=== PATIENT | male | born 1945 | race Caucasian/White ===

== ENCOUNTER 2017-08-31 07:37 | Day surgery (SDC) | payer MEDICARE, OTHER ==
[~2017-08-31 07:37] MED LIST: Acetaminophen TAB* 325 MG PO PRN; Buffered Lidocaine 0.9% SYRIN* 5 ML/SYR SYRINGE INTRADERM ONE
[2017-08-31] MEDS ORDERED: Midazolam* 1 MG/ML 2 ML VIAL (2 MG) ONE ×2 (07:41→10:42)
[2017-08-31] MEDS ORDERED: fentaNYL* 50 MCG/ML 2 ML VIAL (100 MCG VIAL) ONE (10:38)
[2017-08-31 11:04] VITALS: BP 122/69
[2017-08-31] MEDS ORDERED: acetaZOLAMIDE TAB* 250 MG ONE (15:05)
[2017-08-31] MEDS ORDERED: Cyclopentolate 1% OPTH.SOL* 2 ML BTL ONE (15:05)
[2017-08-31] MEDS ORDERED: Proparacaine 0.5% OPHTH.SOL* 15 ML BTL ONE (15:06)
[2017-08-31] MEDS ORDERED: Povidone Iodine 5% OPTH* 30 ML BTL ONE (15:06)
[2017-08-31] MEDS ORDERED: Ketorolac 0.5% OPHTH (NF) 0.5 % 5 ML BTL ONE (15:06)
[2017-08-31] MEDS ORDERED: Phenylephrine 2.5% OPTH.SOL* 2 ML BTL ONE (15:06)
[2017-08-31] MEDS ORDERED: Neomycin/Polymy/Dex OPTH.SUSP* MAXITROL 0.1% 5 ML ONE (15:06)
[2017-08-31] MEDS ORDERED: Lidocaine 1%* 5 ML VIAL ONE (15:06)
[2017-08-31] MEDS ORDERED: Lidocaine 2% EPI 1:200000 MPF*10-20 ML VIAL ONE (15:06)
--- NOTE | 2017-08-31 15:11 | OP ---
DATE OF OPERATION: 08/31/2017. DATE OF : 1945. SURGEON: Vaughn Baldwin M.D. PREOPERATIVE DIAGNOSIS: Cataract right eye. POSTOPERATIVE DIAGNOSIS: Cataract right eye. OPERATIVE PROCEDURE: Extracapsular cataract extraction with intraocular lens implant right eye. PROCEDURE: The patient was brought to the operating room after being given 1/2% Alcaine with epineph rine drops in the preoperative area. The eye was prepped and draped in the usual sterile fashion. S terile drape and eyelid speculum were placed. Again, topical 1/2% Alcaine with epinephrine was given . A paracentesis incision was made at the 9 o'clock position with the No.75 blade. Clear cornea inc ision 2.2 x 2.2-mm was created at the 12 o'clock position starting at the anterior limbus using the 2 .2-mm keratome. The anterior chamber was irrigated with 0.4 mL of 1% non-preservative intracameral l idocaine and filled with DisCoVisc. A capsulorrhexis was completed using the cystotome and the Utrat a forceps. Hydrodissection was performed with balanced salt solution. The lens nucleus was removed w ith the Phacoemulsification handpiece without incident. Cortex was removed with the irrigation-aspir ation handpiece. The capsular bag was re-inflated using DisCoVisc and an SN60WF 16.5 Implant was ins erted with the shooter. The irrigation-aspiration handpiece was used to remove all residual DisCoVis c. The eye was refilled with balanced salt solution and the wound checked and found to be watertight . Topical Maxitrol drops were given. [id number]/[facility] #: [id number]
== END 2017-08-31 11:20 | disposition home or self-care (01) ==
LOC: OREAST 07:37
PROVIDERS: ATTEND Specialist
DX: H25.811 Combined forms of age-related cataract, right eye (principal); H35.3132 Nonexudative age-related macular degeneration, bilateral, intermediate dry stage; H33.8 Other retinal detachments; Z72.0 Tobacco use; E78.00 Pure hypercholesterolemia, unspecified; I25.10 Atherosclerotic heart disease of native coronary artery without angina pectoris; I10 Essential (primary) hypertension; I49.3 Ventricular premature depolarization
CPT/HCPCS: A9270-GY; J2250; J3010; V2632

== ENCOUNTER 2017-09-07 07:09 | Day surgery (SDC) | payer MEDICARE, OTHER ==
[2017-09-07] MEDS ORDERED: Midazolam* 1 MG/ML 5 ML VIAL (5 MG) ONE (07:35)
[2017-09-07] MEDS ORDERED: fentaNYL* 50 MCG/ML 2 ML VIAL (100 MCG VIAL) ONE (07:35)
[2017-09-07] MEDS ORDERED: Proparacaine 0.5% OPHTH.SOL* 15 ML BTL ONE (07:47)
[2017-09-07] MEDS ORDERED: acetaZOLAMIDE TAB* 250 MG ONE (07:47)
[2017-09-07] MEDS ORDERED: Cyclopentolate 1% OPTH.SOL* 2 ML BTL ONE (07:47)
[2017-09-07] MEDS ORDERED: Neomycin/Polymy/Dex OPTH.SUSP* MAXITROL 0.1% 5 ML ONE (07:47)
[2017-09-07] MEDS ORDERED: Lidocaine 2% EPI 1:200000 MPF*10-20 ML VIAL ONE (07:47)
[2017-09-07] MEDS ORDERED: Phenylephrine 2.5% OPTH.SOL* 2 ML BTL ONE (07:47)
[2017-09-07] MEDS ORDERED: Ketorolac 0.5% OPHTH (NF) 0.5 % 5 ML BTL ONE (07:47)
[2017-09-07] MEDS ORDERED: Povidone Iodine 5% OPTH* 30 ML BTL ONE (07:47)
[2017-09-07] MEDS ORDERED: Lidocaine 1%* 5 ML VIAL ONE (07:47)
[2017-09-07 09:31] VITALS: BP 113/62
--- NOTE | 2017-09-08 00:37 | OP ---
DATE OF OPERATION: 09/07/17 [facility] DATE OF : 43 SURGEON: Vaughn Baldwin M.D. PREOPERATIVE DIAGNOSIS: Cataract, left eye. POSTOPERATIVE DIAGNOSIS: Cataract, left eye. OPERATIVE PROCEDURE: Extracapsular cataract extraction with intraocular lens implant left eye. DESCRIPTION OF PROCEDURE: The patient was brought to the operating room after being given 1/2% Alcaine with epinephrine drops in the preoperative area. The eye was prepped and draped in the usual sterile fashion. Sterile drape and eyelid speculum were placed. Again, topical 1/2% Alcaine with epinephrine was given. A paracentesis incision was made at the 3 o'clock position with the No.75 blade. Clear cornea incision 2.2 x 2.2-mm was created at the 6 o'clock position starting at the anterior limbus using the 2.2-mm keratome. The anterior chamber was irrigated with 0.4 mL of 1% non-preservative intracameral lidocaine and filled with DisCoVisc. A capsulorrhexis was completed using the cystotome and the Utrata forceps. Hydrodissection was performed with balanced salt solution. The lens nucleus was removed with the Phacoemulsification handpiece without incident. Cortex was removed with the irrigation-aspiration handpiece. The capsular bag was re-inflated using DisCoVisc and an SN60WF of 15.5 implant was inserted with the shooter. The irrigation-aspiration handpiece was used to remove all residual DisCoVisc. The eye was refilled with balanced salt solution and the wound checked and found to be watertight. Topical Maxitrol drops were given. [id number]/[facility] #: [id number] [facility]ITAL[facility]
== END 2017-09-07 13:18 | disposition home or self-care (01) ==
LOC: OREAST 07:09
PROVIDERS: ATTEND Specialist
DX: H25.812 Combined forms of age-related cataract, left eye (principal); H35.3132 Nonexudative age-related macular degeneration, bilateral, intermediate dry stage; H33.8 Other retinal detachments; I25.10 Atherosclerotic heart disease of native coronary artery without angina pectoris; I10 Essential (primary) hypertension; I49.3 Ventricular premature depolarization; Z95.5 Presence of coronary angioplasty implant and graft; Z87.891 Personal history of nicotine dependence; E78.00 Pure hypercholesterolemia, unspecified; F52.21 Male erectile disorder; K21.9 Gastro-esophageal reflux disease without esophagitis; M54.5 Low back pain; M15.0 Primary generalized (osteo)arthritis; N40.1 Benign prostatic hyperplasia with lower urinary tract symptoms; Z72.0 Tobacco use
CPT/HCPCS: A9270-GY; J2250; J3010; V2632